=== PATIENT | female | born 1960 | race Caucasian/White ===

== ENCOUNTER 2017-02-20 12:46 | Inpatient (IN) | payer BC, OTHER ==
[~2017-02-20] VITALS: Ht 162.6 cm; Wt 49.9 kg
[2017-02-20 14:24] LABS: *URINE HCG, QUAL NEGATIVE (NEGATIVE)
--- NOTE | 2017-02-20 14:30 | NUR ---
ADMISSION NOTE Pt is a 56 year old female, admitted on 02/20/17 at 1400 for ETOH and Dependence and medically supervised withdrawals. Pts skin and body check completed, no contraband found, Pts skin is warm dry and intact, no wounds, lesions or bruising noted during assessment. Pt awake, alert, oriented x 4, gait steady, pt is ambulatory without assistance. Pt weights 110 pounds and her height is 54. Denies any history of seizures. Pt escorted to room 315 where the rest of assessment was completed. Pt is primary source of information, information consistent, speech coherent. Pt did not bring any home medications with her. Pt refused PNA Vaccinations stating that she will receive it somewhere else. Pt states that she has a PCP by the name of , pt denies having a psychiatrist or a psychologist. Pt requested to be full code, regular diet and she was placed on fall and seizure precautions, Pt denies any food allergies but states she is allergic to cats. Her last BM was on 02/20/17. Pt states that she lives in a house with her ex and son. Pt denies smoking cigarettes. Pt denies being admitted to a hospital in the past 30 days, Pt is not a candidate for MRSA. Pts initial vital signs are BP: 145/99mmHg, Temp: 98.1, Pulse: 84 SPO2: 98% RR:18 and states that she has 0/10 pain. Pts initial CIWA was a 4. 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 Pts longest sobriety lasted 20 days month which was about 2 months ago. Pt stated that she does not attend AA meetings. Pt reported family history of abuse, her mother and father were alcoholics. Pt denies any suicidal or homicidal ideations. Substance use Hx: 1.ETOH (red/white wine) : Pt reported first drinking when she was 10 years of age, she has been drinking 1- bottle (750ml) of wine daily for the past 2 years, last use was on 02/20/17 and she stated that she drank 4-5 beers. Rehab history: Pt denies any rehab history, it his first time in treatment. Pt cooperative, appears depressed, reports moderate anxiety. Educated on relaxation techniques (deep breathing) pt verbalized understanding. Skin warm and moist from sweat, color pink, consistent throughout the body. Eyes PERLLA, tremors not noted but felt. Pt denied tingling. All extremities with full ROM. Lung sounds clear bilaterally, no cough present, pt denies SOB. Heart rate regular. Cap refill <3 sec. No edema noted. Abdomen soft, round, bowel sounds active x 4, non tender. Pt denies urinary difficulties, urine was provided and sent to lab. Pt oriented to unit, room, equipment, shown how to use call light, provided returned demonstration. Fall precautions and seizure precautions in place. Side rails up x2, call light within reach, bed locked in low position. MD contacted and aware of patients condition. All admitting orders have been placed, Pt will be on PRN ativan for today. Pt is placed on a 5 day Ativan taper which starts tomorrow. Pt refused his Vitamin B injection. Her Initial CIWA score was a 4.
[2017-02-20 14:34] LABS: *AMPHETAMINE, URINE NEGATIVE (NEGATIVE); *BARBITURATE, URINE NEGATIVE (NEGATIVE); *CANNABINOID, URINE POSITIVE (NEGATIVE); *COCCAINE, URINE NEGATIVE (NEGATIVE); *OPIATE, URINE NEGATIVE (NEGATIVE); *PHENCYCLIDINE SCREEN,URINE NEGATIVE (NEGATIVE)
[2017-02-20 15:53] LABS: BASOPHILS % (AUTO) 0.7 % (0.0-2.0); EOSINOPHILS # (AUTO) 0.1 K/uL (0.0-0.7); EOSINOPHILS % (AUTO) 1.5 % (0.0-7.0); HEMATOCRIT 46.9 % (37-47); HEMOGLOBIN 15.4 G/DL (12.0-16.0); LYMPHOCYTES # (AUTO) 2.7 K/UL (0.8-4.8); LYMPHOCYTES % (AUTO) 43.5 % (20.5-51.5); MEAN CORPUSCULAR HGB CONC 33 g/dL (32.0-37.0); MEAN CORPUSCULAR VOLUME 97.7 FL (81.0-99.0); MONOCYTES # (AUTO) 0.3 K/UL (0.1-1.30); MONOCYTES % (AUTO) 5.3 % (0.0-11.0); NEUTROPHILS # (AUTO) 3.2 K/UL (1.8-8.9); PLATELET COUNT (AUTO) 290 K/UL (150-450); WHITE BLOOD COUNT (AUTO) 6.3 K/UL (4.0-11.2)
[2017-02-20 16:00] VITALS: BP 151/110
[2017-02-20 16:15] LABS: BILIRUBIN,TOTAL 0.2 mg/dL (0.2-1.0); CREATININE 0.6 mg/dL (0.6-1.3); MAGNESIUM 2.2 mg/dL (1.8-2.4); TOTAL PROTEIN, SERUM 8.7 g/dL (6.4-8.2)
--- NOTE | 2017-02-20 16:40 | NUR ---
PRN MEDICATION Pt c/o Anxiety presented with agitation, requested something for relief, non-pharmacological techniques interventions provided x3 and were not effective. Pts BP 151/110 mmHg PRN Clonidine 0.1mg administered PO, educated pt about s/e of medication and when to contact nurse. all needs met, all safety measures in place, will continue to monitor.
--- NOTE | 2017-02-20 17:40 | NUR ---
PRN Reassessment Medication effective, pt reported a decrease in anxiety, pts BP has decreased too 138/90, all needs met will continue to monitor
--- NOTE | 2017-02-20 19:06 | NUR ---
END OF SHIFT Pt is a 56 year old female, admitted on 02/20/17 at 1400 for ETOH and Dependence and medically supervised withdrawals. Pt is full code, regular diet placed on fall and seizure precautions states shes allergic to cats. Pt has PMH of HTN Anxiety hemorrhoids and partially blind in left eye. Pts taper is to start tomorrow @0900, Pt received a PRN Clonidine, medication effective. VS monitored closely q 4 hours withdrawal symptoms were closely monitored. Initial CIWA 4. Patient encouraged adequate PO fluid intake as tolerated. Patient presented with tremors and anxiety during the day. Last CIWA 6. Patient encouraged to attend group therapies/sessions to learn new coping skills to recent relapse, patient denies SI/HI. Participated in group and therapy sessions. All needs met and attended
--- NOTE | 2017-02-20 19:53 | NUR ---
Start of Shift Report received from AM nurse. Pt is a 56 year old female, admitted on 02/20/17 at 1400 for ETOH detox. Pt is full code, regular diet and is on fall and seizure precautions. 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 Pt received a PRN Clonidine on AM shift with noted effectiveness.VSS. Patient reportadely waxing and waning regarding whether decision to detox was right for her. Support given. Patient encouraged adequate PO fluid intake as tolerated. Last CIWA 6. Patient denies SI/HI. Safety measures in place. Bed locked in lowest position with siderails up and call light within reach.
[2017-02-20 20:00] VITALS: BP 141/96
--- NOTE | 2017-02-20 20:03 | NUR ---
PRN Medication Patient received Benadyl 50 mg PO at 2002 for C/O insomnia. Effect pending.
--- NOTE | 2017-02-20 21:03 | NUR ---
Reassessment of patient Patient reassessed one hour after administration of benadryl 50 mg given for sleep. Patient currently resting comfortably in bed with eyes closed. Respirations 16. Breathing even and unlabored.
[2017-02-21] VITALS: BP 125/78
[2017-02-21 04:00] VITALS: BP 119/83
--- NOTE | 2017-02-21 06:44 | NUR ---
End of Shift Report given to AM nurse. Pt is a 56 year old female, admitted on 02/20/17 for ETOH detox. Pt is full code, regular diet and is on fall and seizure precautions. 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 Patient was questioning her decision to come in for detox and has indicated she wishes to go back home following completion of detox and do AA or outpatient treatment for sobriety. Encouragement and support as well as education given regarding detrimental effects of alcohol on mind and body, and indications for medically supervised detox to prevent life threatening withdrawal symptoms. Patient given time to verbalize feelings and reported feeling better related to her decision to complete detox. Patient VS at 1999 141/96, P 84, R 18, T 96.5, SPO2 98% on RA. CIWA 9. Patient had one time dose of Ativan 2 mg and a PRN Benadryl 50 mg at 2002. Patient will begin Ativan taper this AM (02-21-17). Vital signs at 0000 125/78, P 65, R 16, SPO2 96% on RA, T 98.5 CIWA 3. VS at 0400 119/83, P 76, R 14, T 97.7, SPO2 97% on RA CIWA 3. Patient encouraged adequate PO fluid intake as tolerated. Patient denies SI/HI. Intake 797 ML output 2 voids. Slept 10 hours[address] Safety measures in place. Bed locked in lowest position with siderails up and call light within reach.
--- NOTE | 2017-02-21 07:25 | NUR ---
BEGINNING OF SHIFT Patient endorsement report received from manager media nurse, all pertinent information discussed. patient is a 56 year old female with admitting Dx: ETOH dependence. Patient admitted on 02/20/2017, patient with past medical history: anxiety, HTN, hemorrhoids, and partially blind in left eye. patient currently under close observation ongoing, 5 day Ativan taper as ordered started on 02/21/2017. Patient with intact skin. Per manager media patient received PRN: Benadryl, medication effective. Patient slept for 10 hours, with last ciwa score of: 3. Patient received awake, alert and oriented x4, educated regarding plan of care for the day and medication regimen. Safety measures in place. call light kept with in reach. fall and seizure precautions observed and in place, will continue to monitor closely. safety measures in place.
[2017-02-21 08:22] VITALS: BP 143/95
[2017-02-21 10:11] LABS: HEPATITIS B SURFACE AG Negative (Negative)
[2017-02-21 13:44] VITALS: BP 142/91
--- NOTE | 2017-02-21 15:10 | NUR ---
Therapist prompted client about group times. Client stated she will attend groups.
[2017-02-21 17:15] VITALS: BP 150/85
--- NOTE | 2017-02-21 18:53 | NUR ---
END OF SHIFT Patient alert and oriented x4, vital signs were stable during shift. Patient compliant with therapeutic plan of care. Patient with admitting Dx: ETOH dependence. Patient continues on 5 day Ativan taper as ordered, and is currently on day 1 of taper, well tolerated no ASE noted. Encouraged adequate PO fluid intake as tolerated. Patient administered PPD As ordered, well tolerated. 0900 assessment patient presented with: Dry Heaving, barely sweating, moderate anxiety, and restlessness with ciwa score of: 11; 1300 assessment patient presented with: mild nausea with no vomiting, barely sweating, and moderate anxiety, and restlessness with ciwa score of: 8; 1700 assessment patient presented with: mild nausea with no vomiting, barely sweating, and moderate anxiety, and restlessness with ciwa score of: 8 Ativan taper, well tolerated. Patient at times tearful, encouraged to express self, and provided patient with calming reassurance as needed. Patient denies any SI/HI. Encouraged to attend group therapies/sessions to learn new coping skills to prevent relapse. Patients safety measures in place. Call light kept with in each. Will continue to monitor closely. Patient endorsed to manager quality systems nurse, all pertinent information discussed.
--- NOTE | 2017-02-21 19:15 | NUR ---
START OF SHIFT Received 56 year old female patient admitted on 02/20/17 for ETOH dependency. Pt is full code with allergy to cats. She reports a PMHx of anxiety, hemorrhoids, and partial blindness in left eye. Pt reports drinking ETOH 1-2 bottles of wine daily for 2 years. Last dose was 4-5 beers on 02/20/17. She denies a history of seizures. She is placed on 4 day Ativan taper and tolerating well. Per endorsement, pt did not receive or request PRN medications. Pt is alert and oriented x4, breathing is even and unlabored. Safety measures in place. Will monitor.
[2017-02-21 20:00] VITALS: BP 128/86
--- NOTE | 2017-02-21 21:16 | NUR ---
PRN BENADRYL Pt complains of inability to sleep. PRN Benadryl administered as ordered. Safety measures in place. Will monitor.
--- NOTE | 2017-02-21 22:16 | NUR ---
PRN BENADRYL REASSESSMENT PRN medication effective. Pt lying in bed with eyes closed noted to be asleep. Respirations 16, safety measures in place. Will monitor.
--- NOTE | 2017-02-22 | NUR ---
VITALS REFUSED, CIWA DEFERRED 0000 vitals refused. Pt stated " I just want to sleep." CIWA deferred d/t pt lying in bed with eyes closed noted to be asleep. Respirations 16, safety measures in place. Will monitor.
--- NOTE | 2017-02-22 04:00 | NUR ---
VITALS REFUSED/CIWA DEFERRED 0400 vitals refused. CIWA deferred d/t pt lying in bed with eyes closed noted to be asleep. Respirations 16, safety measures in place. Will monitor.
--- NOTE | 2017-02-22 07:12 | NUR ---
END OF SHIFT Pt is a 56 year old female patient admitted on 02/20/17 for ETOH dependency. Pt is full code with allergy to cats. She reports a PMHx of anxiety, hemorrhoids, and partial blindness in left eye. She continues on 4 day Ativan taper. She is currently on day 2/4 and tolerating well. At 2115 she received PRN Benadryl. She slept a total of 10 hrs, Intake: 1091 mL, Void: x3, BM:1, CIWA:6. Pt remains alert and oriented x4, breathing is even and unlabored. Safety measures in place. Endorsed to oncoming shift.
--- NOTE | 2017-02-22 07:22 | NUR ---
BEGINNING OF SHIFT Patient endorsement report received from night worker nurse, all pertinent information discussed. patient is a 56 year old female with admitting Dx: ETOH dependence. Patient admitted on 02/20/2017, patient with past medical history: anxiety, HTN, hemorrhoids, and partially blind in left eye. patient currently under close observation ongoing, 4 day Ativan taper as ordered started on 02/21/2017. Patient with intact skin. Per night worker patient received PRN: Benadryl, medication effective. Patient slept for 10 hours, with last ciwa score of: 6. Patient received awake, alert and oriented x4, educated regarding plan of care for the day and medication regimen. Safety measures in place. call light kept with in reach. fall and seizure precautions observed and in place, will continue to monitor closely. safety measures in place.
[2017-02-22 08:06] VITALS: BP 144/97
[2017-02-22 13:03] VITALS: BP 144/84
[2017-02-22 17:13] VITALS: BP 138/88
--- NOTE | 2017-02-22 18:55 | NUR ---
END OF SHIFT Patient alert and oriented x4, vital signs were stable during shift. Patient compliant with therapeutic plan of care. Patient with admitting Dx: ETOH dependence. Patient continues on 4 day Ativan taper as ordered, and is currently on day 2 of taper, well tolerated no ASE noted. Encouraged adequate PO fluid intake as tolerated. 0900 assessment patient presented with: tremors that can be felt but not seen, barely sweating, moderate anxiety, and mild agitation with ciwa score of: 7; 1300 assessment patient presented with: : tremors that can be felt but not seen, barely sweating, moderate anxiety, and mild agitation with ciwa score of: 7. 1700 assessment patient presented with: tremors that can be felt but not seen, and moderate anxiety with ciwa score of: 5. Ativan taper, well tolerated. Patient at times tearful, encouraged to express self, and provided patient with calming reassurance as needed. Requires frequent redirection. Patient denies any SI/HI. Encouraged to attend group therapies/sessions to learn new coping skills to prevent relapse. Patients safety measures in place. Call light kept with in each. Will continue to monitor closely. Patient endorsed to shift production associate nurse, all pertinent information discussed.
--- NOTE | 2017-02-22 19:15 | NUR ---
START OF SHIFT Received 56 year old female patient admitted on 02/20/17 for ETOH dependency. Pt is full code with allergy to cats. She reports a PMHx of anxiety, hemorrhoids, and partial blindness in left eye. Pt reports drinking ETOH 1-2 bottles of wine daily for 2 years. Last dose was 4-5 beers on 02/20/17. She denies a history of seizures. She currently receiving 4 day Ativan taper and tolerating well. Per endorsement, pt did not receive or request PRN medications. Pt is alert and oriented x4, breathing is even and unlabored. Safety measures in place. Will monitor.
[2017-02-22 20:00] VITALS: BP 141/94
--- NOTE | 2017-02-22 20:09 | NUR ---
PRN BENADRYL Pt complains of inability to sleep. PRN Benadryl administered as ordered. Will monitor effectiveness.
--- NOTE | 2017-02-22 21:09 | NUR ---
PRN BENADRYL REASSESSMENT PRN medication effective. Pt lying in bed with eyes closed noted to be asleep. Respirations 16, breathing is even and unlabored. Safety measures in place. Will continue to monitor.
--- NOTE | 2017-02-23 | NUR ---
VITALS REFUSED, CIWA DEFERRED 0000 vitals refused. CIWA deferred d/t pt lying in bed with eyes closed noted to be asleep. Respirations 16, safety measures in place. Will monitor.
--- NOTE | 2017-02-23 04:00 | NUR ---
VITALS REFUSED, CIWA DEFERRED 0400 vitals refused. CIWA deferred d/t pt lying in bed with eyes closed noted to be asleep. Respirations 16, safety measures in place. Will continue monitor.
--- NOTE | 2017-02-23 07:19 | NUR ---
END OF SHIFT Pt is a 56 year old female patient admitted on 02/20/17 for ETOH dependency. Pt is full code with allergy to cats. She reports a PMHx of anxiety, hemorrhoids, and partial blindness in left eye. She continues on a 4 day Ativan taper and tolerating well. At 2008 she received PRN Benadryl. She slept a total of 10hrs, Intake: 500mL Void:x1 BM: 0 CIWA: 3. Pt remains alert and oriented x4, breathing is even and unlabored. Safety measures in place. Endorsed to oncoming shift.
--- NOTE | 2017-02-23 07:34 | NUR ---
BEGINNING OF SHIFT Patient endorsement report received from material handler 2nd shift nurse, all pertinent information discussed. patient is a 56 year old female with admitting Dx: ETOH dependence. Patient admitted on 02/20/2017, patient with past medical history: anxiety, HTN, hemorrhoids, and partially blind in left eye. patient currently under close observation ongoing, 4 day Ativan taper as ordered started on 02/21/2017, patient scheduled to begin day: 3 of taper. Patient with intact skin. Per material handler 2nd shift patient received PRN: Benadryl, medication effective. Patient slept for 10 hours, with last ciwa score of: 3. Patient received awake, alert and oriented x4, educated regarding plan of care for the day and medication regimen. Safety measures in place. call light kept with in reach. fall and seizure precautions observed and in place, will continue to monitor closely. safety measures in place.
[2017-02-23 08:32] VITALS: BP 130/93
[2017-02-23 13:56] VITALS: BP 128/86
[2017-02-23 17:22] VITALS: BP 131/88
--- NOTE | 2017-02-23 18:54 | NUR ---
END OF SHIFT Patient alert and oriented x4, vital signs were stable during shift. Patient compliant with therapeutic plan of care. Patient with admitting Dx: ETOH dependence. Patient continues on 4 day Ativan taper as ordered, and is currently on day 3 of taper, well tolerated no ASE noted. Encouraged adequate PO fluid intake as tolerated. 0900 assessment patient presented with: tremors that can be felt but not seen, and anxiety with ciwa score of: 5; 1300 assessment patient presented with: tremors that can be felt but not seen, an anxiety with ciwa score of: 5; 1700 assessment patient presented with: anxiety with ciwa score of: 3. Ativan taper, well tolerated. Patient at times tearful, encouraged to express self, and provided patient with calming reassurance as needed. Patient denies any SI/HI. Encouraged to attend group therapies/sessions to learn new coping skills to prevent relapse. Patients safety measures in place. Call light kept with in each. Will continue to monitor closely. Patient endorsed to scene shifter nurse, all pertinent information discussed.
--- NOTE | 2017-02-23 19:20 | NUR ---
START OF SHIFT Received 56-year-old female admitted on 02/20/17 for ETOH dependency. Patient is FULL code with allergy to cats. Patient reports using 1-2 bottles of wine (red & white) daily for the last 2 years. Patient states that last dose was 02/20/17, she had 4-5 beers. 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 Patient has no history of seizures but is on seizure and fall precaution. Patient denies prior treatment and denies hospitalization in the past 30 days. Pt started a 5 day Ativan taper on 02/21/17, but changed to 4 day Ativan taper on 02/21/17. Pt tolerating well. Pt is alert and oriented x4, her breathing is even and unlabored. Safety measures are in place. Will continue to monitor.
[2017-02-23 20:00] VITALS: BP 117/85
--- NOTE | 2017-02-23 20:19 | NUR ---
PRN BENADRYL Patient complains of inability to sleep, PRN benadryl administered as ordered. Will monitor effectiveness.
--- NOTE | 2017-02-23 21:19 | NUR ---
PRN BENADRYL REASSESSMENT PRN benadryl is effective. Pt lying in bed, eyes closed, asleep. Patient's breathing is even and unlabored. Will continue to monitor.
--- NOTE | 2017-02-24 | NUR ---
VITALS REFUSED, CIWA DEFERRED Patient refused midnight vitals signs. CIWA deferred due to patient alseep. Respirations 16 breaths per minute, breathing is even and unlabored. Safety measures in place, will continue to monitor.
--- NOTE | 2017-02-24 04:00 | NUR ---
VITALS REFUSED, CIWA DEFERRED Patient refused 0400 vitals. CIWA was deferred due to patient being asleep. Patient's respirations are 16/min, even and unlabored. Safety measures in place, will continue to monitor.
--- NOTE | 2017-02-24 07:18 | NUR ---
END OF SHIFT 56-year-old female admitted on 02/20/17 for ETOH dependency. Patient is FULL code and allergic to cats. 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 Patient continues on her modified 4 day Ativan taper, tolerating well. Patient received PRN Benadryl at 2019; Benadryl was effective, no other PRNs given. Patient slept a total of 9 hours, intake: 547mL void: 4 BM: 0 CIWA: 3. Patient remains alert and oriented x4, breathing even and unlabored, safety measures in place. Endorsed to oncoming shift.
--- NOTE | 2017-02-24 08:04 | NUR ---
START OF SHIFT Pt 56 y/o female admitted for etoh dependence. Pt received in room on bed watching television. Pt alert and oriented to name, place, and time. Perrla. Skin warm and dry to touch. Respirations even and unlabored. Pt slightly anxious. It was reported that pt slept for 9 hours last night. Bed on lowest position with side rails x2 up for safety. Call light within reach. No distress noted at this time.
[2017-02-24 08:37] VITALS: BP 117/71
[2017-02-24 13:22] VITALS: BP 108/62
[2017-02-24 17:30] VITALS: BP 136/83
--- NOTE | 2017-02-24 18:11 | NUR ---
END OF SHIFT Pt 56 y/o female admitted for etoh dependence. Pt alert and oriented to name place, and time. Perrla. Skin warm and dry to touch. Respirations even and unlabored. Pt with periods of anxiety this morning. Pt observed mostly in patio and room throughout the day. Pt attended group activity. Pt was seen by MD today. Pt medication compliant and tolerated well. No ASE noted. Bed on lowest position with side rails x2 up for safety. Call light within reach. No distress noted at this time.
--- NOTE | 2017-02-24 18:38 | NUR ---
PRN Pt states has 5/10 headache. Motrin po prn per MD order given and tolerated well.
--- NOTE | 2017-02-24 19:30 | NUR ---
Start of Shift Note: Report received from day shift nurse. Pt is a 56F, admitted for ETOH Dependence. Pt was in the room upon the start of shift. AOx4 without s/s of acute distress noted. Pt is full code, on regular diet, and on fall/seizure precautions. Pt noted with allergy to cats. Pt reports hx of HTN, anxiety, hemorrhoids, and partial blindness on L eye. Pt is currently on 5-day Ativan taper to manage withdrawal symptoms. Per day shift nurse, pt's last CIWA was 1 at 1600. Bed in lowest position. Side rails up x2. Call light functioning and within reach. All needs attended and met. Will continue to monitor.
[2017-02-24 20:00] VITALS: BP 144/80
--- NOTE | 2017-02-24 20:29 | NUR ---
PRN Benadryl: Pt requested sleep medication. PRN Benadryl given as ordered.
--- NOTE | 2017-02-25 | NUR ---
CIWA and Vitals refused: Pt refused CIWA, and vitals assessment. Pt requested to sleep through the night. No acute distress noted. Respirations even and unlabored. Will continue to monitor.
--- NOTE | 2017-02-25 07:08 | NUR ---
End of Shift Note: Pt is a 56F, admitted for ETOH Dependence on 02/20/17. Pt is full code, on regular diet, and on fall/seizure precautions. Pt noted with NKA. Pt reports hx of HTN, anxiety, hemorrhoids, and partial blindness on L eye. Pt slept for 7 hours. Respirations even and unlabored. Last CIWA was 1. No N/V noted during the shift. Pt reported inability to sleep. Benadryl PRN given as ordered. Fall and Sz precautions observed. Bed in lowest position. Side rails up x2. Call light functioning and within reach. All needs attended and met. Will endorse to day shift nurse.
[2017-02-25 08:00] VITALS: BP 111/75
--- NOTE | 2017-02-25 08:10 | NUR ---
START OF SHIFT: RECEIVED PT A/O X 4. SHE C/O SOME ANXIETY INTERMITTENTLY. CIWA 2.ATIVAN TAPER COMPLETED. SHE STATES SHE WAS THINKING ABOUT LEAVING AMA TODAY BUT DECIDED THAT SHE SHOULD LEAVE THE RIGHT WAY AND SHE STATES HER DISCHARGE DATE IS TOMORROW. SHE STATES SHE WILL BE DOING IOP AND STATES SHE IS MOTIVATED TOWARD RECOVERY. REINFORCED PT'S GOOD DECISION TO LEAVE ORDERS. ENCOURAGED GROUP ATTENDANCE. WILL CONTINUE TO MONITOR.
[2017-02-25 12:00] VITALS: BP 127/76
[2017-02-25] MEDS ORDERED: AMLO10TA2 PO (14:32)
[2017-02-25] MEDS ORDERED: MULT-24 PO (14:32)
[2017-02-25] MEDS ORDERED: THIA100T13 PO (14:32)
[2017-02-25] MEDS ORDERED: FOLI1TAB16 PO (14:32)
[2017-02-25] MEDS ORDERED: GABA-532 PO (14:32)
[2017-02-25] MEDS ORDERED: DIPH50CA37 PO (14:32)
[2017-02-25] MEDS ORDERED: CLON0.1T14 PO (14:32)
--- NOTE | 2017-02-25 14:40 | NUR ---
PRN MOTRIN GIVEN FOR REPORTED H/A 5/10 ON SCALE.
--- NOTE | 2017-02-25 15:40 | NUR ---
PT STATES PRN MOTRIN WAS EFFECTIVE. H/A RELIEVED.0/10 ON PAIN SCALE.
[2017-02-25 16:00] VITALS: BP 122/83
--- NOTE | 2017-02-25 18:50 | NUR ---
END OF SHIFT: PT COMPLETED TAPER. DISCHARGE SCHEDULED FOR 02/26. SHE WAS GIVEN PRN MOTRIN FOR H/A WHICH WAS EFFECTIVE. SHE ATTENDED GROUPS AND IS COMPLIANT WITH MEDS. WILL PASS SHIFT REPORT TO ONCOMING NIGHT NURSE.
--- NOTE | 2017-02-25 19:33 | NUR ---
Start of Shift Report received from AM nurse. Pt is a 56 year old female, admitted on 02/20/17 for ETOH detox. Pt is full code, regular diet and is on fall and seizure precautions. 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 Completed Ativan taper. VSS. Patient resting comfortably in room at change of shift without physical or emotional complaints offered. Reports she is feeling strong and grounded. Last CIWA 2. Safety measures in place. Bed locked in lowest position with side rails up and call light within reach.
[2017-02-25 20:00] VITALS: BP 139/77
--- NOTE | 2017-02-25 20:06 | NUR ---
PRN MEDICATION Benadryl 50 mg PO given at 2005 for C/O insomnia. Effect pending
--- NOTE | 2017-02-25 21:06 | NUR ---
reassessment of patient Patient reassessed one hour after receiving Benadryl 50 mg PO for insomnia. Patient resting comfortably in bed with eyes closed. Breathing even and unlabored.
--- NOTE | 2017-02-26 00:05 | NUR ---
CIWA deferred/Vital signs refused Patient refused vital signs at 0000. requested to sleep. CIWA deferred for sleep. Breathing even and unlabored. R 16.
--- NOTE | 2017-02-26 04:00 | NUR ---
CIWA deferred/Vital signs refused Patient refused vital signs at 0400. requested to sleep. CIWA deferred for sleep. Breathing even and unlabored. R 16.
--- NOTE | 2017-02-26 06:50 | NUR ---
End of Shift Report given to AM nurse. Pt is a 56 year old female, admitted on 02/20/17 for ETOH detox. Pt is full code, regular diet and is on fall and seizure precautions. 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 Patient completed Ativan taper. Patient VS at 1999 139/77, P 74, R 18, T 98.4, SPO2 98% on RA. CIWA 2. Patient was given PRN Benadryl 50 mg at 2005 with good effect. Mood stable. Anticipating discharge. Intake: 1615 ML. Output: 2 voids. Slept [address]. Bed locked in lowest position with side rails up and call light within reach.
[2017-02-26 08:00] VITALS: BP 151/88
--- NOTE | 2017-02-26 08:00 | NUR ---
START OF SHIFT: RECEIVED PT A/O X 4. SHE C/O SOME ANXIETY ABOUT DISCHARGING TODAY. CIWA 1.ATIVAN TAPER COMPLETED. SHE STATES SHE IS REGRETTING HER DECISION TO NOT GO TO RESIDENTIAL TREATMENT. MULTIDISCIPLINARY TEAM MADE AWARED. SHE STATES SHE WILL CALL CENTERS TOMORROW AND MAKE ARRANGEMENTS TO GET INTO TREATMENT.. WILL CONTINUE WITH DISCHARGE PROCESS.
[2017-02-26 08:37] VITALS: BP 151/88
--- NOTE | 2017-02-26 09:45 | NUR ---
DISCHARGE: PT IS A/O X4. SHE DENIES S/I AND H/I. SHE STATES SHE IS MOTIVATED TO STAY SOBER . HER BELONGINGS RETURNED. EDUCATED PT ON DISCHARGE INSTRUCTIONS AND MEDICATIONS. HYPERTRICHOLOGIST ESCORTED PT TO [facility] WHERE SHE WAS TRANSPORTED BY PRIVATE TRANSPORTATION HOME AT 0935.
== END 2017-02-26 09:35 | disposition home or self-care (01) | DRG 895 ==
LOC: EDSEX 13:08 → SRC 13:08
PROVIDERS: ADMIT Internal Medicine; ATTEND Internal Medicine
PROC: HZ2ZZZZ Detoxification Services for Substance Abuse Treatment (ICD-10-PCS; principal; 2017-02-20)
PROC: HZ31ZZZ Individual Counseling for Substance Abuse Treatment, Behavioral (ICD-10-PCS; 2017-02-21)
PROC: HZ41ZZZ Group Counseling for Substance Abuse Treatment, Behavioral (ICD-10-PCS; 2017-02-25)
DX: F10.230 Alcohol dependence with withdrawal, uncomplicated (principal); I15.9 Secondary hypertension, unspecified; K70.10 Alcoholic hepatitis without ascites; Y90.9 Presence of alcohol in blood, level not specified; Z82.49 Family history of ischemic heart disease and other diseases of the circulatory system; Z81.1 Family history of alcohol abuse and dependence; K64.9 Unspecified hemorrhoids; H54.42 Blindness, left eye, normal vision right eye; F12.90 Cannabis use, unspecified, uncomplicated
CPT/HCPCS: 36415; 70030-TC; 80307; 80349; 83690; 83735; 84703; 85025; 86580; 86592; 86705; 86803; 87340; 87806; A4663; G0480; Q0163